=== PATIENT | male | born 1985 | race Caucasian/White ===

== ENCOUNTER → 2018-12-07 | Outpatient (CLI) | payer OTHER ==
[~2018-12-07] VITALS: Ht 167.6 cm; Wt 115.9 kg
[2018-12-07 13:12] LABS: HEMATOCRIT 55.1 % (42.0-52.0); HEMOGLOBIN 18.8 g/dL (13.5-18.0); MEAN PLATELET VOLUME 10.3 fl (7.4-10.4); RED BLOOD COUNT 6.39 M/mm3 (4.20-5.60); WHITE BLOOD COUNT 13.8 K/mm3 (4.8-10.8)
[2018-12-07 13:20] LABS: ALBUMIN 4.7 g/dL (3.5-5.0)
[2018-12-07 13:21] LABS: CALCIUM 10.1 mg/dL (8.3-10.5)
[2018-12-07 13:23] LABS: TOTAL PROTEIN 8.7 g/dL (6.4-8.3)
[2018-12-07 13:24] LABS: TOTAL BILIRUBIN 0.8 mg/dL (0.2-1.2)
[2018-12-07 13:25] VITALS: BP 140/102
[2018-12-07 14:00] VITALS: BP 150/85
== END ==
LOC: AMSURD 12:19
PROVIDERS: Nurse Practitioner
DX: R19.7 Diarrhea, unspecified (principal); R11.10 Vomiting, unspecified
CPT/HCPCS: J2405; J7030

== ENCOUNTER 2019-08-21 23:34 | Emergency (ER) | payer OTHER ==
[~2019-08-21] VITALS: Ht 167.6 cm; Wt 118.2 kg
[2019-08-22 00:04] LABS: HEMOGLOBIN 17.7 g/dL (13.5-18.0); MEAN CELL VOLUME 86 fl (78-100); MEAN CORPUSCULAR HEMOGLOBIN 29 pg (27-31); MEAN CORPUSCULAR HGB CONC 34 g/dL (33-37); MEAN PLATELET VOLUME 10.1 fl (7.4-10.4); PLATELET COUNT 365 K/mm3 (130-400); RED BLOOD COUNT 6.06 M/mm3 (4.20-5.60); RED CELL DISTRIBUTION WIDTH 14.3 % (11.5-14.5)
[2019-08-22 00:07] LABS: WHITE BLOOD COUNT 26.8 K/mm3 (4.8-10.8)
[2019-08-22 00:10] LABS: ALBUMIN 4.5 g/dL (3.5-5.0)
[2019-08-22 00:11] LABS: CALCIUM 9.4 mg/dL (8.3-10.5)
[2019-08-22 00:14] LABS: TOTAL BILIRUBIN 0.5 mg/dL (0.2-1.2)
[2019-08-22 00:31] LABS: URINE APPEARANCE CLOUDY; URINE BILIRUBIN NEGATIVE (NEGATIVE); URINE BLOOD NEGATIVE (NEGATIVE); URINE COLOR YELLOW; URINE GLUCOSE NEGATIVE (NEGATIVE); URINE KETONE 1+ (NEGATIVE); URINE NITRATE NEGATIVE (NEGATIVE); URINE PROTEIN(semi-quant) 2+ mg/dL (NEGATIVE); URINE UROBILINOGEN NORMAL (NORMAL)
[2019-08-22 00:32] LABS: URINE LEUKOCYTE ESTERASE NEGATIVE (NEGATIVE); URINE MUCUS PRESENT (NOT PRESENT)
[2019-08-22 00:47] LABS: NEUTROPHILS 85 % (42-75)
[2019-08-22 00:48] LABS: LYMPHOCYTE 10 % (20-51); MONOCYTE 5 % (3-10)
[2019-08-22 02:22] VITALS: BP 154/84
== END 2019-08-22 02:22 | disposition home or self-care (01) ==
LOC: ED 23:34
PROVIDERS: Nurse Practitioner Family
DX: K63.89 Other specified diseases of intestine (principal); D72.829 Elevated white blood cell count, unspecified; R11.2 Nausea with vomiting, unspecified; R10.11 Right upper quadrant pain; R10.32 Left lower quadrant pain; F17.210 Nicotine dependence, cigarettes, uncomplicated; Z90.49 Acquired absence of other specified parts of digestive tract; Z88.0 Allergy status to penicillin
CPT/HCPCS: J2405; J7120; Q9967